=== PATIENT | male | born 1985 | race Two or more races ===

== ENCOUNTER 2016-09-14 10:34 | Inpatient (IN) | payer OTHER ==
[~2016-09-14] VITALS: Ht 172.7 cm; Wt 113.7 kg
[2016-09-14] VITALS (24 sets, daily range): BP systolic 128–178; BP diastolic 76–101; PULSE 64–107; RESP 10–20; Ht 172.7 cm; Wt 113.7 kg
[~2016-09-14 10:34] MED LIST: CEFAZOLIN 1 GM INJ ONE
[2016-09-14] MEDS ORDERED: Metronidazole 500 MG in NS 100 ML IVPB SCH (11:00)
[2016-09-14] MEDS ORDERED: SOD CHLORIDE 0.9% 1,000 ML IV SCH (11:00)
[2016-09-14] MEDS ORDERED: CIPROFLOXACIN 400 MG in D5W 200 ML IVPB SCH (11:00)
[2016-09-14] MEDS ORDERED: DEXL60CA2 PO (12:22)
[2016-09-14] MEDS ORDERED: BUPIVACAINE 0.25% (MPF) 30 ML INJ ONE (14:14)
[2016-09-14] MEDS ORDERED: PROPOFOL 20 ML ONE (14:28)
[2016-09-14] MEDS ORDERED: MIDAZOLAM 1 MG/ML 2 ML INJ ONE (14:28)
[2016-09-14] MEDS ORDERED: METOCLOPRAMIDE 10 MG INJ ONE (14:28)
[2016-09-14] MEDS ORDERED: GLYCOPYRROLATE 0.4 MG INJ ONE (14:40)
[2016-09-14] MEDS ORDERED: ROCURONIUM 50 MG INJ ONE ×3 (14:40→16:21)
[2016-09-14] MEDS ORDERED: NEOSTIGMINE 3 MG/3 ML SYRINGE ONE (14:40)
[2016-09-14] MEDS ORDERED: ROPIVACAINE 0.5 % 30 ML VIAL ONE (14:40)
[2016-09-14] MEDS ORDERED: HYDROmorphONE 2 MG/ML SYG ONE (14:48)
[2016-09-14] MEDS ORDERED: POLYMYXIN/BACITRACIN 1L IRRIG ONE (17:05)
[2016-09-14] MEDS: LACTATED RINGER'S 1,000 ML IV SCH (17:53)
[2016-09-14] MEDS ORDERED: HYDROCODONE/APAP (5/325) TAB PO PRN (18:00)
[2016-09-14] MEDS ORDERED: MEPERIDINE 25 MG INJ ONE (18:06)
[2016-09-14] MEDS ORDERED: HYDROmorphONE (0.2 MG/ML) 10ML SYG IV PRN ×3 (18:30)
[2016-09-14] MEDS ORDERED: METOCLOPRAMIDE 10 MG INJ IV PRN (18:30)
[2016-09-14] MEDS ORDERED: LABETALOL HCL 20MG INJ IV PRN (18:30)
[2016-09-14] MEDS ORDERED: DIPHENHYDRAMINE 50 MG INJ IV PRN (18:30)
[2016-09-14] MEDS ORDERED: MEPERIDINE 25 MG INJ IV PRN (18:30)
[2016-09-14] MEDS ORDERED: ONDANSETRON 4 MG INJ IV PRN (18:30)
[2016-09-14 18:56] LABS: ADD SCAN DIFF NO
[2016-09-14 18:57] LABS: BASOPHIL # 0.1 10^3/ul (0.0-0.1); BASOPHILS % 0.3 % (0.0-2.0); EOSINOPHILS # 0.2 10^3/ul (0.0-0.5); EOSINOPHILS % 0.9 % (0.0-7.0); HEMATOCRIT 47.4 % (42.0-52.0); MEAN CORPUSCULAR HEMOGLOBIN 29.2 pg (29.0-33.0); MEAN CORPUSCULAR HGB CONC 33.8 g/dl (32.0-37.0); MEAN CORPUSCULAR VOLUME 86.5 fl (82.0-101.0); MEAN PLATELET VOLUME 10.4 fl (7.4-10.4); MONOCYTES % 5.2 % (0.0-11.0); NEUTROPHIL # 14.2 10^3/ul (1.6-7.5); NEUTROPHILS % 76.8 % (39.0-77.0); PLATELET COUNT 301 10^3/UL (140-415); RED BLOOD COUNT 5.48 10^6/ul (4.70-6.10); RED CELL DISTRIBUTION WIDTH 11.8 % (11.5-14.5); WHITE BLOOD COUNT 18.4 10^3/ul (4.8-10.8)
[2016-09-14] MEDS: hydrALAzine 20 MG INJ IV PRN ×2 (19:04→19:25)
[2016-09-14 19:16] LABS: BILIRUBIN,INDIRECT 0.2 mg/dl (0-1.1); BILIRUBIN,TOTAL 0.2 mg/dl (0.2-1.3)
[2016-09-14 19:17] LABS: ALBUMIN/GLOBULIN RATIO 1.17; TOTAL PROTEIN 7.4 g/dl (6.1-8.1)
[2016-09-14 19:31] LABS: CALCIUM 8.6 mg/dl (8.4-10.2); CREATININE 0.95 mg/dl (0.61-1.24); POTASSIUM 4.1 mmol/L (3.5-5.1)
[2016-09-14] MEDS: morphine 2 MG INJ IV PRN ×2 (20:23→23:45)
--- NOTE | 2016-09-14 22:27 | OPR ---
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 He has been on high dose PPIs without resolution of his reflux symptoms. Metabolic workup revealed no other abnormalities. The patient requested laparoscopic Darius repair. 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 OPERATION PERFORMED: Laparoscopic Darius fundoplication, laparoscopic hiatal hernia repair with Bj ll 8-layer mesh, intraoperative EGD. SURGEON: Yong Hicks MD SPECIMENS: None. COMPLICATIONS: None. ANESTHESIA: General. DESCRIPTION OF PROCEDURE: The patient was taken to the OR and prepped and draped in usual sterile f ashion. Surgical timeout was performed. IV antibiotics were given. Left upper periumbilical trans verse incision is made with a 15 blade. Using a 12 mm optical trocar, optical entry was performed. Pneumoperitoneum was established. Left subcostal midclavicular 12 mm optical port was placed under direct visualization. Right mid clavicular subcostal 5 mm optical port was placed under direct vis ualization. Left upper flank 5 mm optical trocar was placed under direct visualization. Midepigast gary 5 mm incision was made and a snake liver retractor was used to retract the liver. Operation was commenced by first identifying pars flaccida and dividing the pars flaccida marching up to the caud ate lobe. The right serafin was identified and isolated from the right esophagus. There appeared to b e significant inflammation in this area due to the severe Pagan's. The short gastrics were identi fied and divided with laparoscopic Harmonic jonathan up to the left serafin, which was identified. The e sophagus was encircled with a Te drain and mobilized. The posterior fundus, which was mobilize d, was marked with a 2-0 silk suture. Attention was paid to the hiatal hernia, which was small. Th is was closed primarily with interrupted 2-0 Ethibond using laparoscopic suturing techniques. [place]lay 8-layer ACell mesh was affixed with additional interrupted 2-0 Ethibond to reinforce the hiatal her fabiola repair. The posterior fundus was delivered retroesophageal with the marking suture. Shoeshine maneuver was performed. There was free mobility and no tension. An EGD was performed intraoperativ taty to confirm there was no evidence of any leakage after irrigation was performed and insufflation was performed. The irrigation was suctioned out. The stomach was suctioned out. A 46-Estonian bougi e was placed into the stomach and esophagus without any issue with good mobility. The fundoplicatio n was then completed with interrupted 3-0 Prolene affixing the stomach fundoplication to the esophag us; 1 cm above and 1 cm below the stomach fundoplication was completed with interrupted 2-0 silk. T here was good hemostasis. Ports were removed under direct visualization. Skin was closed using ski n kendra. Local anesthesia was injected. Dry dressings were applied. Dictated By: YONG HICKS MD SB/SHONDA Conf#: [id number] DID#: [id number] CC: PREMA VILLEGAS MD;*EndCC*
--- NOTE | 2016-09-14 23:40 | HP ---
DATE OF ADMISSION: 09/14/2016 CHIEF COMPLAINT AND HISTORY OF PRESENT ILLNESS: The patient is a 30-year-old gentleman with history of severe GERD and hiatal hernia resistant to proton pump inhibitor. The patient was seen by Dr. Sudha carrasco as an outpatient from GI standpoint and was referred to ____ for further evaluation. Th e patient was subsequently seen by Dr. Hicks and underwent laparoscopic Darius fundoplication. The pa tient has significant postoperative pain and is being admitted for further evaluation and management . The patient denied any chest pain or shortness of breath. The patient denied any history of rece nt fever or chills. No history of vomiting. No history of urinary or bowel complaint. Rest of the review of systems was unremarkable. PAST MEDICAL HISTORY: The patient has history of asthma as a child but is currently not on any jama tment and also history of right ACL tear, status post surgery. SOCIAL HISTORY: No smoking, no alcohol. FAMILY HISTORY: Noncontributory. PHYSICAL EXAMINATION: GENERAL: The patient is conscious, awake, alert. VITAL SIGNS: Temperature 99.2, blood pressure 159/80, pulse 77, respirations 16. O2 saturation 97% on 2 L nasal cannula. HENT: Conjunctivae and lids normal. Oropharynx clear. NECK: No mass. CHEST: Fairly clear. CARDIOVASCULAR: S1, S2 normal. No murmur. ABDOMEN: The patient is status post surgery. EXTREMITIES: No leg edema. Pedal pulses palpable. SKIN: Without acute rash. NEUROLOGIC: The patient is awake, alert with no gross focal deficit. Detailed examination was defe rred due to recent surgery. LABORATORIES: Prior to admission, WBC 8.3, hemoglobin 16.3, platelets 318. Sodium ____, potassium 4.9, BUN 13, creatinine 0.8, glucose 111. Coagulation profile normal. IMPRESSION: Severe gastroesophageal reflux disease recalcitrant to proton pump inhibitor, status po st laparoscopic fundoplication and laparoscopic hiatal hernia repair. PLAN: The patient admitted on medical floor. The patient will be started on IV fluid, IV Reglan, I V morphine, IV Zofran. Will use SCD for DVT prophylaxis. The patient will be kept n.p.o. for now. Will do followup labs in the morning. The patient received preop Cipro and Flagyl. The patient rendon s history of ALLERGY TO PENICILLIN. Will continue to follow him from medical standpoint. Dictated By: PREMA BARON/SHONDA Conf#: [id number] DID#: [id number]
[2016-09-15] MEDS: LACTATED RINGER'S 1,000 ML IV SCH ×4 (02:29→23:53)
[2016-09-15] MEDS: morphine 2 MG INJ IV PRN ×2 (02:29→06:12)
[2016-09-15 04:30] VITALS: BP 132/80; PULSE 91; RESP 18
[2016-09-15 04:54] LABS: ADD SCAN DIFF NO
[2016-09-15 05:10] LABS: BASOPHILS % 0.1 % (0.0-2.0); EOSINOPHILS % 0.1 % (0.0-7.0); HEMATOCRIT 45.6 % (42.0-52.0); HEMOGLOBIN 15.1 g/dl (14.0-18.0); LYMPHOCYTES # 3.1 10^3/ul (0.8-2.9); LYMPHOCYTES % 23.1 % (15.0-51.0); MEAN CORPUSCULAR HEMOGLOBIN 28.8 pg (29.0-33.0); MEAN CORPUSCULAR HGB CONC 33.1 g/dl (32.0-37.0); MEAN CORPUSCULAR VOLUME 86.9 fl (82.0-101.0); MEAN PLATELET VOLUME 10.5 fl (7.4-10.4); MONOCYTE # 1.2 10^3/ul (0.3-0.9); MONOCYTES % 8.5 % (0.0-11.0); NEUTROPHIL # 9.2 10^3/ul (1.6-7.5); NEUTROPHILS % 67.8 % (39.0-77.0); PLATELET COUNT 315 10^3/UL (140-415); RED BLOOD COUNT 5.25 10^6/ul (4.70-6.10); RED CELL DISTRIBUTION WIDTH 12.2 % (11.5-14.5); WHITE BLOOD COUNT 13.6 10^3/ul (4.8-10.8)
[2016-09-15 05:52] LABS: ALBUMIN 3.6 g/dl (3.3-4.9)
[2016-09-15 05:55] LABS: ALBUMIN/GLOBULIN RATIO 1.16; BILIRUBIN,INDIRECT 0.7 mg/dl (0-1.1); BILIRUBIN,TOTAL 0.7 mg/dl (0.2-1.3); CALCIUM 8.8 mg/dl (8.4-10.2); CREATININE 0.74 mg/dl (0.61-1.24); TOTAL PROTEIN 6.7 g/dl (6.1-8.1)
[2016-09-15 08:07] VITALS: BP 132/83; RESP 16
[2016-09-15] MEDS: morphine 4 MG/ML VIAL IV PRN ×3 (08:30→20:15)
--- NOTE | 2016-09-15 10:01 | PN ---
Date/Time of Note Date/Time of Note DATE: 09/15/16 TIME: 10:00 Assessment/Plan VTE Prophylaxis VTE Prophylaxis Intervention: SCD's Lines/Catheters IV Catheter Type (from Nrsg): Peripheral IV Urinary Cath still in place: No (REMOVED in OR) Assessment/Plan Chief Complaint/Hosp Course s/p lap heidi fundoplication lap hiatal hernia repair with biologic mesh and intraop egd Problems: Assessment/Plan clears today and if ok dc Subjective 24 Hr Interval Summary Free Text/Dictation doing well, had some expected chest pain ekg ordered which was normal Exam/Review of Systems Vital Signs Vitals Vital Signs Date Time Temp Pulse Resp B/P Pulse Ox O2 Delivery O2 Flow Rate FiO2 09/15/16 08:45 Nasal Cannula 2.0 09/15/16 08:07 97.8 98 16 132/83 98 Intake and Output 09/14/16 09/14/16 09/15/16 15:00 23:00 07:00 Intake Total 2000 ml 1200 ml Output Total 530 ml 600 ml Balance 1470 ml 600 ml Exam clean dry intact Results Result Diagram: 09/15/16 0420 09/15/16 0420 Results 24 hrs Laboratory Tests Test 09/14/16 18:50 09/15/16 04:20 Alanine Aminotransferase (ALT/SGPT) 141 H 128 H Albumin 4.0 3.6 Albumin/Globulin Ratio 1.17 1.16 Alkaline Phosphatase 70 50 Anion Gap 17 H 16 Aspartate Amino Transf (AST/SGOT) 99 H 83 H Basophils # 0.1 0.0 Basophils % 0.3 0.1 Blood Urea Nitrogen 12 10 Calcium Level 8.6 8.8 Carbon Dioxide Level 27 27 Chloride Level 103 102 Creatinine 0.95 0.74 Direct Bilirubin 0.00 0.00 Eosinophils # 0.2 0.0 Eosinophils % 0.9 0.1 Globulin 3.40 H 3.10 Glucose Level 104 108 Hematocrit 47.4 45.6 Hemoglobin 16.0 15.1 Indirect Bilirubin 0.2 0.7 Lymphocytes # 3.0 H 3.1 H Lymphocytes % 16.0 23.1 Mean Corpuscular Hemoglobin 29.2 28.8 L Mean Corpuscular Hemoglobin Concent 33.8 33.1 Mean Corpuscular Volume 86.5 86.9 Mean Platelet Volume 10.4 10.5 H Monocytes # 1.0 H 1.2 H Monocytes % 5.2 8.5 Neutrophils # 14.2 H 9.2 H Neutrophils % 76.8 67.8 Nucleated Red Blood Cells # 0.0 0.0 Nucleated Red Blood Cells % 0.0 0.0 Platelet Count 301 315 Potassium Level 4.1 4.0 Red Blood Count 5.48 5.25 Red Cell Distribution Width 11.8 12.2 Sodium Level 143 141 Total Bilirubin 0.2 0.7 Total Protein 7.4 6.7 White Blood Count 18.4 H 13.6 #H Medications Medications Current Medications Morphine Sulfate (morphine) 2 mg Q2H PRN IV PAIN LEVEL 6-10 Last administered on 09/15/16 06:12; Admin Dose 2 MG; Start 09/14/16 at 18:00 Acetaminophen/ Hydrocodone Bitart 1 tab 1 tab Q6H PRN PO PAIN LEVEL 6-10; Start 09/14/16 at 18:00 Lactated Ringer's (Lr) 1,000 ml @ 100 mls/hr Q10H IV Last administered on 02:29; Admin Dose 100 MLS/HR; Start 09/14/16 at 17:53 Influenza Virus Vaccine (Fluzone) 0.5 ml ONCE ONCE IM* ; Start 09/16/16 at 09:00 ; Stop 09/16/16 at 09:01 Morphine Sulfate (morphine) 4 mg Q2H PRN IV SEVERE PAIN LEVEL 7-10 Last administered on 09/15/16 08:30; Admin Dose 4 MG; Start 09/15/16 at 08:30 Zackary GOODMAN Sep 15, 2016 10:01
[2016-09-15] MEDS ORDERED: HYDROCODONE/APAP (5/325) TAB PO PRN (17:30)
--- NOTE | 2016-09-15 18:56 | PN ---
Date/Time of Note Date/Time of Note DATE: 09/15/16 TIME: 18:53 Assessment/Plan VTE Prophylaxis VTE Prophylaxis Intervention: SCD's Lines/Catheters IV Catheter Type (from Nrsg): Peripheral IV Urinary Cath still in place: No (REMOVED in OR) Assessment/Plan Assessment/Plan - Severe gastroesophageal reflux disease recalcitrant to proton pump inhibitor, status post laparoscopic fundoplication and laparoscopic hiatal hernia repair. Continue Caldwell and morphine for pain. - Obesity, weight loss advised. Further recommendations based on clinical course. Plan of care discussed with Dr. Raymundo. Subjective 24 Hr Interval Summary Free Text/Dictation Patient's complaint of significant amount of pain, denies nausea vomiting, encouraged to use incentive spirometer and get out of bed. Exam/Review of Systems Vital Signs Vitals Vital Signs Date Time Temp Pulse Resp B/P Pulse Ox O2 Delivery O2 Flow Rate FiO2 09/15/16 08:45 Nasal Cannula 2.0 09/15/16 08:07 97.8 98 16 132/83 98 Intake and Output 09/14/16 09/14/16 09/15/16 15:00 23:00 07:00 Intake Total 2000 ml 1200 ml Output Total 530 ml 600 ml Balance 1470 ml 600 ml Exam Constitutional: alert, obese Psych: nl mood/affect, no complaints Head: atraumatic, normocephalic Eyes: nl conjunctiva ENMT: nl external ears & nose Neck: non-tender, supple Respiratory: clear to auscultation, normal air movement Cardiovascular: nl pulses, regular rate and rhythm Gastrointestinal: other (Status post laparoscopic surgery), soft Musculoskeletal: nl extremities to inspection Extremities: normal pulses Neurological: DIRECTOR GRAPHICS II-XII intact Results Result Diagram: 09/15/16 0420 09/15/16 0420 Results 24 hrs Laboratory Tests Test 09/15/16 04:20 Alanine Aminotransferase (ALT/SGPT) 128 H Albumin 3.6 Albumin/Globulin Ratio 1.16 Alkaline Phosphatase 50 Anion Gap 16 Aspartate Amino Transf (AST/SGOT) 83 H Basophils # 0.0 Basophils % 0.1 Blood Urea Nitrogen 10 Calcium Level 8.8 Carbon Dioxide Level 27 Chloride Level 102 Creatinine 0.74 Direct Bilirubin 0.00 Eosinophils # 0.0 Eosinophils % 0.1 Globulin 3.10 Glucose Level 108 Hematocrit 45.6 Hemoglobin 15.1 Indirect Bilirubin 0.7 Lymphocytes # 3.1 H Lymphocytes % 23.1 Mean Corpuscular Hemoglobin 28.8 L Mean Corpuscular Hemoglobin Concent 33.1 Mean Corpuscular Volume 86.9 Mean Platelet Volume 10.5 H Monocytes # 1.2 H Monocytes % 8.5 Neutrophils # 9.2 H Neutrophils % 67.8 Nucleated Red Blood Cells # 0.0 Nucleated Red Blood Cells % 0.0 Platelet Count 315 Potassium Level 4.0 Red Blood Count 5.25 Red Cell Distribution Width 12.2 Sodium Level 141 Total Bilirubin 0.7 Total Protein 6.7 White Blood Count 13.6 #H Medications Medications Current Medications Morphine Sulfate (morphine) 2 mg Q2H PRN IV PAIN LEVEL 6-10 Last administered on 09/15/16 06:12; Admin Dose 2 MG; Start 09/14/16 at 18:00 Acetaminophen/ Hydrocodone Bitart 1 tab 1 tab Q6H PRN PO PAIN LEVEL 6-10 Last administered on 09/15/16 16:34; Admin Dose 1 TAB; Start 09/14/16 at 18:00 Lactated Ringer's (Lr) 1,000 ml @ 100 mls/hr Q10H IV Last administered on 02:29; Admin Dose 100 MLS/HR; Start 09/14/16 at 17:53 Influenza Virus Vaccine (Fluzone) 0.5 ml ONCE ONCE IM* ; Start 09/16/16 at 09:00 ; Stop 09/16/16 at 09:01 Morphine Sulfate (morphine) 4 mg Q2H PRN IV SEVERE PAIN LEVEL 7-10 Last administered on 09/15/16 12:30; Admin Dose 4 MG; Start 09/15/16 at 08:30 Acetaminophen/ Hydrocodone Bitart ([place]dwell (5/325)) 2 tab Q6H PRN PO SEVERE PAIN LEVEL 7-10; Start 09/15/16 at 17:30 NELLY PERALTA Sep 15, 2016 18:56
[2016-09-15 19:49] VITALS: BP 137/87; RESP 20
--- NOTE | 2016-09-15 20:28 | RADRPT ---
Vent Rate: 91 bpm RR Interval: 0 msec DC Interval: 160 msec QRS Duration: 88 msec QT Interval: 354 msec QTC Interval: 435 msec P-R-T [place]: 35 - 49 - 37 degrees Normal sinus rhythm Normal ECG Electronically Signed By: Nima Garcia [id number]
[2016-09-16] MEDS: morphine 4 MG/ML VIAL IV PRN ×2 (01:30→06:19)
[2016-09-16] MEDS ORDERED: AL HYDROX/MG HYDROX/SIMETH 30 ML CUP PO PRN (02:00)
[2016-09-16 04:52] LABS: ADD SCAN DIFF NO
[2016-09-16 05:15] LABS: BASOPHILS % 0.2 % (0.0-2.0); EOSINOPHILS # 0.1 10^3/ul (0.0-0.5); EOSINOPHILS % 0.7 % (0.0-7.0); HEMATOCRIT 45.3 % (42.0-52.0); HEMOGLOBIN 14.8 g/dl (14.0-18.0); LYMPHOCYTES % 24.2 % (15.0-51.0); MEAN CORPUSCULAR HEMOGLOBIN 28.5 pg (29.0-33.0); MEAN CORPUSCULAR HGB CONC 32.7 g/dl (32.0-37.0); MEAN CORPUSCULAR VOLUME 87.3 fl (82.0-101.0); MEAN PLATELET VOLUME 10.5 fl (7.4-10.4); MONOCYTE # 1.4 10^3/ul (0.3-0.9); NEUTROPHIL # 7.9 10^3/ul (1.6-7.5); NEUTROPHILS % 63.3 % (39.0-77.0); PLATELET COUNT 284 10^3/UL (140-415); RED BLOOD COUNT 5.19 10^6/ul (4.70-6.10); RED CELL DISTRIBUTION WIDTH 12.1 % (11.5-14.5); WHITE BLOOD COUNT 12.5 10^3/ul (4.8-10.8)
[2016-09-16 05:19] LABS: POTASSIUM 3.9 mmol/L (3.5-5.1)
[2016-09-16 05:21] LABS: CREATININE 0.78 mg/dl (0.61-1.24)
[2016-09-16 07:00] VITALS: BP 136/79; RESP 20
[2016-09-16] MEDS ORDERED: INFLUENZA VIRUS VACCINE 0.5 ML (DISPENSING) IM* ONE (09:00)
[2016-09-16] MEDS: LACTATED RINGER'S 1,000 ML IV SCH (09:22)
[2016-09-16] MEDS ORDERED: HYDR-3498 PO (16:32)
== END 2016-09-16 17:00 | disposition home or self-care (01) | DRG 328 ==
LOC: REC 10:34 → MS1 19:55
PROVIDERS: ADMIT Internal Medicine; ATTEND Surgery
PROC: 0BUR4KZ (ICD-10-PCS; 2016-09-14)
PROC: [UNRECOGNIZED PROCEDURE] (2016-09-14)
PROC: 0DV44ZZ Restriction of Esophagogastric Junction, Percutaneous Endoscopic Approach (ICD-10-PCS; principal; 2016-09-14 13:00)
DX: K21.0 Gastro-esophageal reflux disease with esophagitis (principal); K22.70 Barrett's esophagus without dysplasia; K44.9 Diaphragmatic hernia without obstruction or gangrene; J45.909 Unspecified asthma, uncomplicated
CPT/HCPCS: 80048; 80053; 85025; 90686; 93005; J0360; J0690; J0744; J1170; J2175; J2250; J2270; J2710; J2765; J2795; J7030; J7120; Q4166

== ENCOUNTER 2017-11-15 09:37 | Observation (INO) | END 2017-11-17 16:45 | disposition home or self-care (01) ==

== ENCOUNTER 2017-12-13 15:13 | Observation (INO) | END 2017-12-16 13:41 | disposition home or self-care (01) ==

== ENCOUNTER 2018-09-02 06:00 | Day surgery (SDC) | payer OTHER ==
[2018-09-01 15:03] VITALS: BMI 33.5
[2018-09-02] VITALS (12 sets, daily range): BP systolic 118–161; BP diastolic 75–91; PULSE 66–96; RESP 11–22; Ht 172.7 cm; Wt 107.0 kg
[~2018-09-02] VITALS: Ht 172.7 cm; Wt 107.0 kg
[~2018-09-02 06:00] MED LIST changes: -CEFAZOLIN 1 GM INJ ONE; +DEXL60CA2 PO; +HYDR-3601 PO; +SOD CHLORIDE 0.9% 1,000 ML IV SCH; +[UNRECOGNIZED DRUG - REMARK] XX SCH
[2018-09-02] MEDS ORDERED: DESFLURANE 15 MIN ONE (07:00)
[2018-09-02] MEDS ORDERED: CLINDAMYCIN 600 MG/D5W (PMX) 50 ML IVPB ONE (07:30)
[2018-09-02] MEDS ORDERED: BUPIVACAINE 0.25% (MPF) 30 ML INJ ONE (07:47)
--- NOTE | 2018-09-02 08:02 | PREAC ---
Date/Time of Note Date/Time of Note DATE: 09/02/18 TIME: 08:01 Anesthesia Eval and Record Evaluation Time Pre-Procedure Interview DATE: 09/02/18 TIME: 08:01 Age 32 Sex male NPO: 8 hrs Preoperative diagnosis gallstones Planned procedure lap choly Past Medical History Past Medical History: Includes GI: GERD Surgery & Anesthesia Issues No known issue Meds Anticoagulation: No Beta Gerry within 24 hr: No Reason Beta Gerry not given: Pt. not on B-Gerry Active Scripts Hydrocodone Bit-Acetaminophen (Hydrocodone Bit-APAP) 5-325MG Tablet, 1 TAB PO Q6H PRN for PAIN LEVEL 6-10, #30 TAB Prov:NELLY PERALTA 09/16/16 Reported Medications Dexlansoprazole (Dexilant) 60 Mg Lan., 60 MG PO DAILY, #30 CAP 09/14/16 Current Medications Sodium Chloride 1,000 ml @ 75 mls/hr Q96H15P IV Last administered on 09/02/18at 06:59; Admin Dose 75 MLS/HR; Start 09/02/18 at 06:00; Stop 09/02/18 at 19:19 Clindamycin HCl/ Dextrose 50 ml @ 50 mls/hr ONCE ONCE IVPB ; Start 09/02/18 at 07:30; Stop 09/02/18 at 08:29 Meds reviewed: Yes Allergies Coded Allergies: Penicillins (Verified Allergy, Severe, ANAPHYLACTIC SHOCK, 09/14/16) mayonnaise (Verified Adverse Reaction, Intermediate, stomach pain, 09/01/18) mustard (Verified Adverse Reaction, Intermediate, stomach, 09/01/18) Allergies Reviewed: Yes Labs/Studies Labs Reviewed: Reviewed by anesthesiologist Result Diagram: 09/02/18 0630 09/02/18 0630 Laboratory Tests 09/02/18 06:30 test: N/A Pre-procedure Exam Last vitals Vital Signs Date Temp Pulse Resp B/P (MAP) Pulse Ox O2 O2 Flow FiO2 Time Delivery Rate 09/02/18 97.5 76 18 118/75 96 07:05 (89) Airway: Adequate mouth opening, Adequate thyromental dist Mallampati: Mallampati III Teeth: Normal Lung: Normal Heart: Normal ASA Physical Status ASA physical status: 1 Emergency: None Pre-operative Attestations Prior to commencing anesthesia and surgery, the patient was re-evaluated, there was verification of: *The patient's identity *The results of appropriate recent lab work and preoperative vital signs *The above evaluation not changing prior to induction *Anesthetic plan, risk benefits, alternative and complications discussed with patient/family; questions answered; patient/family understands, accepts and wishes to proceed. ADILIA RIVERA DO Sep 02, 2018 08:02
[2018-09-02] MEDS ORDERED: FENTAnyl 50 MCG/ML VIAL ONE ×2 (08:05→08:24)
[2018-09-02] MEDS ORDERED: PROPOFOL 20 ML ONE (08:05)
[2018-09-02] MEDS ORDERED: LIDOCAINE 1% (MDV) 20 ML INJ ONE (08:05)
[2018-09-02] MEDS ORDERED: ROCURONIUM 50 MG INJ ONE (08:05)
[2018-09-02] MEDS ORDERED: ONDANSETRON 4 MG INJ ONE (08:15)
[2018-09-02] MEDS ORDERED: DEXAMETHASONE 4 MG/ML 5 ML INJ ONE (08:15)
[2018-09-02] MEDS ORDERED: ROPIVACAINE 0.5 % 30 ML VIAL ONE (08:16)
[2018-09-02] MEDS ORDERED: HYDROmorphONE 1 MG/5 ML IV SYRINGE IV PRN ×2 (08:30)
[2018-09-02] MEDS ORDERED: NEOSTIGMINE 3 MG/3 ML SYRINGE ONE ×2 (08:34)
[2018-09-02] MEDS ORDERED: GLYCOPYRROLATE 0.4 MG INJ ONE (08:34)
--- NOTE | 2018-09-02 08:58 | OPR ---
Date/Time of Note Date/Time of Note DATE: 09/02/18 TIME: 08:54 Operative Report Procedure Date: Sep 02, 2018 Preoperative Diagnosis symptomatic gallstones Postoperative Diagnosis same Operation/Procedure Performed laparoscopic cholecystectomy Surgeon see signature line Institutional Asset Manager none Anesthesia Type: general Estimated Blood Loss: 0 - 10 ml's Transfusion none Specimen gallbladder Grafts/Implants none Complications none Pt Condition Post Procedure: stable Indications This is a 32-year-old male with a complicated medical history. He initially presented with a hiatal hernia. He underwent laparoscopic fundoplication with biologic mesh. Subsequently he was noncompliant with his diet and vomited. He disrupted his wrap and he underwent repeat laparoscopic Darius fundoplication with biologic mesh. A few years later he developed symptomatic gallstones and had another episode of vomiting. He has 2 problems with some tender gallstones and a disrupted wrap and hiatal hernia that is recurrent due to his vomiting. He is brought here for initial stage procedure with the laparoscopic cholecystectomy to resolve the gallbladder issue prior to treatment of his hiatal hernia issue. He had ample time for question and answer session in both the office and in the preop area. All questions were answered. Potential complications include but not limited to bleeding infection, bladder injury intra-abdominal organ injury need for additional operations were discussed the patient. Patient expresses understanding and consents to the operation. Procedure Description Patient is taken to the OR and prepped and draped in usual sterile fashion. Surgical time was performed. IV antibiotics given. Infraumbilical incision was made with a 15 blade. Dissection with cautery was carried onto the fascia. The fascia was grasped with [place]'s and divided with curved Roe scissors. 0 Vicryl U stitch was placed into the fascia. Mandujano trochars were introduced. Pneumoperitoneum is established. Midepigastric 12 mm optical trochars were placed under direct visualization. Right upper quadrant upper flank 5 mm optical trochars were placed under direct position. Upon initial inspection there was minimal adhesions in the right upper quadrant from the prior surgery however there is some adhesions to the gallbladder showing chronic cholecystitis. The gallbladder wall was thickened. The gallbladder is held by the fundus and retracted in a lateral cephalad direction. [place] graspers used to dissect out the cystic artery and cystic duct. The critical view of safety was established. The cystic duct is divided to close proximally clipped distal and the cystic duct is divided laparoscopic scissors. Cystic artery was divided 3 clips proximally clipped distal and the division was performed laparoscopic scissors. Gallbladder was taken of the gallbladder bed. Good hemostasis is established in the gallbladder bed however due to its raw surface Surgicel snow was placed laparoscopically. Gallbladder was retrieved using Endo Catch bag. Ports removed under direct position. 0 Vicryl sutures tied down. Skin is closed and skin kendra. Dry dressings were applied. A tap block was performed by the anesthesiologist after I left the OR. Zackary GOODMAN Sep 02, 2018 08:58
[2018-09-02] MEDS ORDERED: HYDROCODONE/APAP (5/325) TAB PO ONE (09:00)
[2018-09-02] MEDS ORDERED: MEPERIDINE 25 MG INJ ONE (09:10)
--- NOTE | 2018-09-02 09:11 | PAC ---
Date/Time of Note Date/Time of Note DATE: 09/02/18 TIME: 09:10 Post-Anesthesia Notes Post-Anesthesia Note Last documented vital signs Vital Signs Date Temp Pulse Resp B/P (MAP) Pulse Ox O2 O2 Flow FiO2 Time Delivery Rate 09/02/18 98 90 18 130/65 100 0910 Activity: WNL Respiratory function: WNL Cardiovascular function: WNL Mental status: Baseline Pain reasonably controlled: Yes Hydration appropriate: Yes Nausea/Vomiting absent: Yes ADILIA RIVERA DO Sep 02, 2018 09:11
[2018-09-02] MEDS ORDERED: MEPERIDINE 25 MG INJ IV PRN (09:30)
== END 2018-09-02 12:17 | disposition home or self-care (01) ==
LOC: SDS 06:00
PROVIDERS: ATTEND Surgery
DX: K80.20 Calculus of gallbladder without cholecystitis without obstruction (principal)
CPT/HCPCS: 47562; 80053; 85025; 85610; 85730; J1100; J1170; J2175; J2405; J2710; J2795; J3010; Z7610; 88304

== ENCOUNTER 2018-09-08 12:10 | Emergency (ER) | payer OTHER ==
[~2018-09-08] VITALS: Ht 167.6 cm; Wt 95.0 kg
[~2018-09-08 12:10] MED LIST changes: -SOD CHLORIDE 0.9% 1,000 ML IV SCH; -[UNRECOGNIZED DRUG - REMARK] XX SCH
[2018-09-08 12:19] VITALS: Ht 167.6 cm; Wt 95.0 kg
[2018-09-08] MEDS ORDERED: ONDANSETRON (ODT) 4 MG TAB ODT STA (14:34)
[2018-09-08] MEDS ORDERED: HYDROCODONE/APAP (5/325) TAB PO ONE (15:00)
[2018-09-08] MEDS ORDERED: ALBU18HF INHALATION (15:44)
--- NOTE | 2018-09-26 12:17 | ERD ---
ER Documentation Chief Complaint Chief Complaint Complains of abdominal pain x 3 days HPI 32-year-old male presents for abdominal pain times 2 days. patient had gallbladder surgery about a week ago. The pain is noted to be 10 out of 10, diffuse, described as sharp. He states he had a presyncopal episode today bec ause of the abdominal pain. He had mild dizziness and shortness of breath at the time also. Does have a past medical history of Darius fundoplication for chronic GERD. He denies any fevers. Patient has [place] at home for pain given by the surgeon, he states that it helps with the pain however does return with a patent medication wears off. Patient also states that he felt well and went back to work. ROS All systems reviewed and are negative except as per history of present illness. Medications Home Meds Active Scripts Albuterol Sulfate* (Ventolin HFA*) 18 Gm Hfa.aer.ad, 2 PUFF INHALATION Q4H PRN for SHORTNESS OF BREATH, #1 INHALER Prov:GRIFFIN CARSON DO 09/08/18 Hydrocodone Bit-Acetaminophen (Hydrocodone Bit-APAP) 5-325MG Tablet, 1 TAB PO Q6H PRN for PAIN LEVEL 6-10, #30 TAB Prov:NELLY PERALTA 09/16/16 Reported Medications Dexlansoprazole (Dexilant) 60 Mg Cap., 60 MG PO DAILY, #30 CAP 09/14/16 Allergies Allergies: Coded Allergies: Penicillins (Verified Allergy, Severe, ANAPHYLACTIC SHOCK, 09/14/16) mayonnaise (Verified Adverse Reaction, Intermediate, stomach pain, 09/01/18) mustard (Verified Adverse Reaction, Intermediate, stomach, 09/01/18) PMhx/Soc History of Surgery: Yes (HERNIA REPAIR, DARIUS FUND. ACL RT KNEE) Anesthesia Reaction: No Hx Neurological Disorder: No Hx Respiratory Disorders: No Hx Cardiac Disorders: No Hx Psychiatric Problems: No Hx Miscellaneous Medical Probl: No Hx Alcohol Use: Yes (OCC) Hx Substance Use: Yes (MJ OCC) Hx Tobacco Use: Yes (OCC) Smoking Status: Current some day smoker Physical Exam Vitals Temperature 98.4, pulse 88, respiration 20, blood pressure 123/70, O2 saturation 99% on room air. Physical Exam Const: No acute distress Resp: Clear to auscultation bilaterally Cardio: Regular rate and rhythm, no murmurs Abd: Soft, non distended. Normal bowel sounds, mild diffuse tenderness to palpation, no McBurney's point tenderness, no Hu sign, no rebound or guarding noted, surgical incision sites clean dry intact Skin: No petechiae or rashes Back: No midline or flank tenderness Ext: No cyanosis, or edema, 5 out of 5 muscle strength bilateral upper and lower extremity Neur: Awake and alert, bilateral upper and lower extremity sensation intact Psych: Normal Mood and Affect Results 24 hrs Laboratory Tests Test 09/08/18 14:50 White Blood Count 15.8 10^3/ul Red Blood Count 5.53 10^6/ul Hemoglobin 15.9 g/dl Hematocrit 47.5 % Mean Corpuscular Volume 85.9 fl Mean Corpuscular Hemoglobin 28.8 pg Mean Corpuscular Hemoglobin Concent 33.5 g/dl Red Cell Distribution Width 11.8 % Platelet Count 340 10^3/UL Mean Platelet Volume 9.9 fl Immature Granulocytes % 0.400 % Neutrophils % 69.2 % Lymphocytes % 18.0 % Monocytes % 8.6 % Eosinophils % 3.5 % Basophils % 0.3 % Nucleated Red Blood Cells % 0.0 /100WBC Immature Granulocytes # 0.060 10^3/ul Neutrophils # 10.9 10^3/ul Lymphocytes # 2.9 10^3/ul Monocytes # 1.4 10^3/ul Eosinophils # 0.6 10^3/ul Basophils # 0.1 10^3/ul Nucleated Red Blood Cells # 0.0 10^3/ul Urine Color YELLOW Urine Clarity SLIGHTLY CLOUDY Urine pH 5.0 Urine Specific Vance 1.027 Urine Ketones NEGATIVE mg/dL Urine Nitrite NEGATIVE mg/dL Urine Bilirubin NEGATIVE mg/dL Urine Urobilinogen NEGATIVE mg/dL Urine Leukocyte Esterase NEGATIVE Luna/ul Urine Microscopic RBC 20 /HPF Urine Microscopic WBC 1 /HPF Urine Calcium Oxalate Crystals FEW /HPF Urine Mucus MODERATE /HPF Urine Hemoglobin NEGATIVE mg/dL Urine Glucose NEGATIVE mg/dL Urine Total Protein NEGATIVE mg/dl Sodium Level 142 mmol/L Potassium Level 4.3 mmol/L Chloride Level 101 mmol/L Carbon Dioxide Level 29 mmol/L Anion Gap 12 Blood Urea Nitrogen 12 mg/dl Creatinine 0.76 mg/dl Est Glomerular Filtrat Rate mL/min > 60 mL/min Glucose Level 89 mg/dl Calcium Level 9.7 mg/dl Total Bilirubin 0.2 mg/dl Direct Bilirubin 0.00 mg/dl Indirect Bilirubin 0.2 mg/dl Aspartate Amino Transf (AST/SGOT) 25 IU/L Alanine Aminotransferase (ALT/SGPT) 37 IU/L Alkaline Phosphatase 70 IU/L Total Protein 8.6 g/dl Albumin 4.6 g/dl Globulin 4.00 g/dl Albumin/Globulin Ratio 1.15 Lipase 75 U/L Current Medications Medications Dose Sig/Faizan Start Time Status Last (Trade) Ordered Route PRN Stop Time Admin Dose Reason Admin Ondansetron 4 mg ONCE STAT 09/08/18 DC 09/08/18 HCl (Zofran ODT 14:34 14:53 Odt) 09/08/18 14:36 1 tab ONCE ONCE 09/08/18 DC 09/08/18 Acetaminophen PO 15:00 14:53 / 09/08/18 15:01 Hydrocodone Bitart ([place] (5/325)) Procedures/MDM Medical Decision Making: Differential diagnosis includes but not limited to acute gastritis, acute gastroenteritis, appendicitis, cholecystitis, pancreatitis. Patient appeared well on physical exam. Nontoxic appearing. ED course: Patient was given [place] and Zofran. Symptoms improved with treatment. Labs: CBC showed no anemia, elevated WBC 15 CMP showed no electrolyte abnormalities, there was normal kidney and liver function Lipase was normal UA was negative for infection Imaging: CT abdomen pelvis without contrast showed with some fluid and air in the gallbladder fossa. This can be normal findings status post surgery. There is also a small hiatal hernia noted, no evidence of bowel obstruction. There is a possibility of postop ileus, appendix noted to be normal, there is also some fat stranding that is consistent with postsurgical changes. The patient abdominal pain is probably related to postsurgical changes. He did feel better with [place] given in the ER. Vital signs reviewed and noted to be normal. It is unlikely that the patient has an abdominal abscess given the patient appeared well and vital signs are normal. Patient advised follow-up with his surgeon. Prescription(s): Patient given prescription for supportive medications . Patient requests a refill on his Ventolin which was prescribed. Patient advised to follow up with PCP in 1-2 days. Patient advised to return to ED for new or worsening symptoms. Patient stable on discharge from the ED. Disclaimer: Inadvertent spelling and grammatical errors are likely due to EHR/dictation software use and do not reflect on the overall quality of patient care. Also, please note that the electronic time recorded on this note does not necessarily reflect the actual time of the patient encounter. Departure Diagnosis: Primary Impression: Abdominal pain Condition: Fair Patient Instructions: Abdominal Pain Referrals: [facility] YOU HAVE RECEIVED A MEDICAL SCREENING EXAM AND THE RESULTS INDICATE THAT YOU DO NOT HAVE A CONDITION THAT REQUIRES URGENT TREATMENT IN THE EMERGENCY DEPARTMENT. FURTHER EVALUATION AND TREATMENT OF YOUR CONDITION CAN WAIT UNTIL YOU ARE SEEN IN YOUR DOCTORS OFFICE WITHIN THE NEXT 1-2 DAYS. IT IS YOUR RESPONSIBILITY TO MAKE AN APPOINTMENT FOR FOLOW-UP CARE. IF YOU HAVE A PRIMARY DOCTOR --you should call your primary doctor and schedule an appointment IF YOU DO NOT HAVE A PRIMARY DOCTOR YOU CAN CALL OUR PHYSICIAN REFERRAL HOTLINE AT IF YOU CAN NOT AFFORD TO SEE A PHYSICIAN YOU CAN CHOSE FROM THE FOLLOWING [facility] [address] [facility]. [facility] [address] [facility]. [facility] [address] [facility]. [facility] [address] [facility] [facility] [address] [facility]. [facility]. [address] Additional Instructions: Call your primary care doctor TOMORROW for an appointment during the next 1-2 days.See the doctor sooner or return here if your condition worsens before your appointment time. See Dr. Hicks in office in 1-2 days GRIFFIN CARSON DO Sep 26, 2018 12:17
== END 2018-09-08 16:15 | disposition home or self-care (01) ==
LOC: FTE 12:10
DX: R10.9 Unspecified abdominal pain (principal); F17.210 Nicotine dependence, cigarettes, uncomplicated
CPT/HCPCS: 36415; 74176; 80053; 81001; 83690; 85025; Z7502; Z7610; 81003

== ENCOUNTER 2018-11-14 06:21 | Inpatient (IN) | payer OTHER ==
[2018-11-11 12:27] VITALS: BMI 35.0
[2018-11-14] VITALS (23 sets, daily range): BP systolic 116–189; BP diastolic 66–102; PULSE 56–96; RESP 14–22; Ht 172.7 cm; Wt 111.5 kg
[~2018-11-14] VITALS: Ht 172.7 cm; Wt 111.5 kg
[~2018-11-14 06:21] MED LIST changes: +CLINDAMYCIN 600 MG/D5W (PMX) 50 ML IVPB ONE; -DEXL60CA2 PO; -HYDR-3601 PO; +SOD CHLORIDE 0.9% 1,000 ML IV SCH
[2018-11-14] MEDS ORDERED: BUPIVACAINE 0.25% (MPF) 30 ML INJ ONE (08:15)
--- NOTE | 2018-11-14 09:08 | PREAC ---
Date/Time of Note Date/Time of Note DATE: 11/14/18 TIME: 09:06 Anesthesia Eval and Record Evaluation Time Pre-Procedure Interview DATE: 11/14/18 TIME: 09:06 Age 33 Sex male NPO: 8 hrs Preoperative diagnosis HIATAL HERNIA, DIAPHRAGMATIC HERNIA Planned procedure LAP HIATAL HERNIA, DIAPHRAGMATIC HERNIA REPAIR Past Medical History Past Medical History: Includes Pulm: Asthma GI: Obesity Surgery & Anesthesia Issues No known issue Meds Anticoagulation: No Beta Gerry within 24 hr: No Reason Beta Gerry not given: Pt. not on B-Gerry Discontinued Reported Medications Dexlansoprazole (Dexilant) 60 Mg Lan., 60 MG PO DAILY, #30 CAP 09/14/16 Discontinued Scripts Albuterol Sulfate* (Ventolin HFA*) 18 Gm Hfa.aer.ad, 2 PUFF INHALATION Q4H PRN for SHORTNESS OF BREATH, #1 INHALER Prov:GRIFFIN CARSON DO 09/08/18 Hydrocodone Bit-Acetaminophen (Hydrocodone Bit-APAP) 5-325MG Tablet, 1 TAB PO Q6H PRN for PAIN LEVEL 6-10, #30 TAB Prov:NELLY PERALTA 09/16/16 Current Medications Sodium Chloride 1,000 ml @ 75 mls/hr [id number] IV Last administered on 11/14/18at 07:36; Admin Dose 75 MLS/HR; Start 11/14/18 at 06:00; Stop 11/14/18 at 18:00 Meds reviewed: Yes Allergies Coded Allergies: Penicillins (Verified Allergy, Severe, ANAPHYLACTIC SHOCK, 11/14/18) mayonnaise (Verified Adverse Reaction, Intermediate, stomach pain, 11/14/18) mustard (Verified Adverse Reaction, Intermediate, stomach, 11/14/18) Allergies Reviewed: Yes Labs/Studies Labs Reviewed: Reviewed by anesthesiologist Result Diagram: 11/14/18 0707 11/14/18 07 Laboratory Tests 11/14/18 07:07 test: N/A Pre-procedure Exam Last vitals Vital Signs Date Temp Pulse Resp B/P (MAP) Pulse Ox O2 O2 Flow FiO2 Time Delivery Rate 11/14/18 97.5 75 16 123/75 96 07:26 (91) Airway: Adequate mouth opening, Adequate thyromental dist Mallampati: Mallampati II Teeth: Normal Lung: Normal Heart: Normal ASA Physical Status ASA physical status: 2 Emergency: None Planned Anesthetic General/MAC: ETT Nerve block: TAP (bilateral) Pre-operative Attestations Prior to commencing anesthesia and surgery, the patient was re-evaluated, there was verification of: *The patient's identity *The results of appropriate recent lab work and preoperative vital signs *The above evaluation not changing prior to induction *Anesthetic plan, risk benefits, alternative and complications discussed with patient/family; questions answered; patient/family understands, accepts and wishes to proceed. Erwin Gómez M.D. November 14, 2018 09:08
[2018-11-14] MEDS ORDERED: PROPOFOL 20 ML ONE (09:10)
[2018-11-14] MEDS ORDERED: GLYCOPYRROLATE 0.4 MG INJ ONE (09:10)
[2018-11-14] MEDS ORDERED: CEFAZOLIN 1 GM INJ ONE (09:10)
[2018-11-14] MEDS ORDERED: MIDAZOLAM 1 MG/ML 2 ML INJ ONE (09:10)
[2018-11-14] MEDS ORDERED: NEOSTIGMINE 3 MG/3 ML SYRINGE ONE (09:10)
[2018-11-14] MEDS ORDERED: ROCURONIUM 50 MG INJ ONE ×2 (09:10→10:31)
[2018-11-14] MEDS ORDERED: DEXAMETHASONE 4 MG/ML 5 ML INJ ONE (09:11)
[2018-11-14] MEDS ORDERED: ONDANSETRON 4 MG INJ ONE (09:11)
[2018-11-14] MEDS ORDERED: FENTAnyl 50 MCG/ML VIAL ONE (09:11)
[2018-11-14] MEDS ORDERED: ROPIVACAINE 0.5 % 30 ML VIAL ONE (09:24)
[2018-11-14] MEDS ORDERED: EPHEDrine SULFATE 50 MG/5 ML SYG IV PRN (09:30)
[2018-11-14] MEDS ORDERED: OXYCODONE/ACETAMINOPHEN (5/325) TAB PO PRN ×2 (09:30)
[2018-11-14] MEDS ORDERED: hydrALAzine 20 MG INJ IV PRN (09:30)
[2018-11-14] MEDS ORDERED: LABETALOL HCL 20MG INJ IV PRN (09:30)
[2018-11-14] MEDS ORDERED: TRIMETHOBENZAMIDE 100 MG/ML VIAL IM PRN (09:30)
[2018-11-14] MEDS ORDERED: MIDAZOLAM 1 MG/ML 2 ML INJ IV PRN (09:30)
[2018-11-14] MEDS ORDERED: HYDROmorphONE 1 MG/5 ML IV SYRINGE IV PRN ×3 (09:30)
[2018-11-14] MEDS ORDERED: MEPERIDINE 25 MG INJ IV PRN (09:30)
[2018-11-14] MEDS ORDERED: FENTAnyl 50 MCG/ML VIAL IV PRN ×3 (09:30)
[2018-11-14] MEDS ORDERED: DIPHENHYDRAMINE 50 MG INJ IV PRN (09:30)
[2018-11-14] MEDS ORDERED: ALBUTEROL 0.083% (NEB) 2.5 MG/3 ML AMP HHN PRN (09:30)
[2018-11-14] MEDS ORDERED: IPRATROPIUM (NEB) 0.5 MG/2.5 ML AMP HHN PRN (09:30)
[2018-11-14] MEDS ORDERED: ONDANSETRON 4 MG INJ IV PRN ×2 (09:30→11:30)
[2018-11-14] MEDS ORDERED: SUGAMMADEX SODIUM 200 MG/2 ML VIAL IV ONE (11:20)
[2018-11-14] MEDS ORDERED: OXYCODONE 5 MG/5 ML POSYG PO ONE (11:30)
--- NOTE | 2018-11-14 11:41 | PAC ---
Date/Time of Note Date/Time of Note DATE: 11/14/18 TIME: 11:41 Post-Anesthesia Notes Post-Anesthesia Note Last documented vital signs Vital Signs Date Temp Pulse Resp B/P (MAP) Pulse Ox O2 O2 Flow FiO2 Time Delivery Rate 11/14/18 98.9 11:38 11/14/18 75 16 123/75 96 07:26 (91) Activity: WNL Respiratory function: WNL Cardiovascular function: WNL Mental status: Baseline Pain reasonably controlled: Yes Hydration appropriate: Yes Nausea/Vomiting absent: Yes Erwin Gómez M.D. November 14, 2018 11:41
--- NOTE | 2018-11-14 11:46 | OPR ---
Date/Time of Note Date/Time of Note DATE: 11/14/18 TIME: 11:37 Operative Report Procedure Date: November 14, 2018 Preoperative Diagnosis recurrent hiatal hernia and recalcitrant GERD Postoperative Diagnosis same Operation/Procedure Performed 1. laparoscopic recurrent hiatal hernia repair with fundoplication 2. implantation of biologic mesh 3. laparoscopic lysis of adhesions 4. laparoscopic removal of biologic mesh 5. laparoscopic removal of foreign body Surgeon see signature line Skin Piler none Anesthesia Type: general Estimated Blood Loss: 10 - 50 ml's Transfusion none Specimen foreign body Grafts/Implants none Complications none Pt Condition Post Procedure: stable Indications This is a 33-year-old male with a complicated history. He initially presented to the office because of recalcitrant GERD and reflux disease that was resistant to PPI therapy. He underwent a successful laparoscopic hiatal hernia repair with fundoplication initially. Postoperative course was routine. He returned with a recurrence due to his lack of caution in the initial stages of his diet and disrupted his fundoplication. He underwent a second operation with the redo fundoplication. Postoperative course was appropriate and recovered nicely. Approximately a year later he had an episode of acute cholecystitis and nausea and vomiting. He had appropriate treatment of his gallbladder and underwent a laparoscopic cholecystectomy. He then had imaging which showed that his hiatal hernia repair and fundoplication was disrupted and he had painful reflux disease. He underwent appropriate imaging and he presents today for a third fundoplication. He is told that the risks are increased because of his third operation with increased scar tissue. Additionally the success of this operation may be influenced by his prior multiple surgeries. Patient expressed understanding and still wanted to proceed with the surgery as his recurrent GERD symptoms were unbearable for the patient. Increased risk of bleeding infection intra-abdominal organ injury were discussed the patient. Patient expressed understanding consents to the operation. Procedure Description Patient is taken to the OR and prepped and draped in usual sterile fashion. Surgical time was performed. IV antibiotics given. Left upper periumbilical transverse incision that was used for prior surgery was used. Through this incision a 12 mm optical trocar was placed under direct visualization without any issue. Insufflation is performed and pneumoperitoneum was established. Midepigastric 5 mm optical trochars placed in direct position. This was then removed and a Chelsea liver retractor was placed under direct visualization. This is secured with a self retracting arm. Right subcostal 5 mm port is placed under direct physician. Left subcostal 12 mm optical trochars placed under direct visualization. Left flank 5 mm optical trochars placed under direct visualization. Upon initial inspection there is a significant amount of scar tissue. Extensive laparoscopic lysis of adhesions was performed. This was performed along the edge of the liver. This was taken down carefully. Further inspection showed a disruption of the fundoplication. This also showed a foreign body. This was then laparoscopically lysed and removed through the port and sent for specimen. The area of where the short gastrics were had adhesions. This was taken down with laparoscopic harmonic jonathan all the way to the hiatus. This allowed mobilization of the fundus completely. In direct communication with the anesthesiologist 56 bougie was placed under direct visualization. This was seen appropriately and was seen going through the hiatus and down into the stomach. This was fixated under direct medication with the anesthesiologist. A fundoplication was then performed with reapproximation of the anterior fundoplication by reapproximating the fundus to the lesser curve under direct physician. This was done by using laparoscopic suturing techniques with 2-0 PDS and this area was then additionally reinforced with interrupted 2-0 silk. Good hemostasis established. This repair was then reinforced with 6 layer ACell biologic mesh. This mesh was secured in place with interrupted 2-0 silk. Good hemostasis was established in the surgical bed. The bougie was then removed with direct medication to the anesthesiologist without any issue. There is no resistance. All ports were removed under direct visualization. Skin was closed and skin kendra. A tap block was provided the anesthesiologist at the beginning of the case. Dry dressings were applied. Zackary GOODMAN November 14, 2018 11:46
[2018-11-14] MEDS ORDERED: CLINDAMYCIN 600 MG/D5W (PMX) 50 ML IVPB SCH (12:00)
[2018-11-14] MEDS ORDERED: OXYCODONE 5 MG/5 ML POSYG PO PRN (12:00)
[2018-11-14] MEDS ORDERED: oxyCODONE 5 MG TAB PO SCH (12:30)
[2018-11-14] MEDS ORDERED: oxyCODONE 5 MG TAB PO PRN (13:00)
[2018-11-14] MEDS: SOD CHLORIDE 0.9% 1,000 ML IV SCH ×2 (13:10→21:59)
[2018-11-14] MEDS: morphine 2 MG INJ IV PRN ×4 (14:17→21:58)
[2018-11-14] MEDS: CLINDAMYCIN 600 MG/D5W (PMX) 50 ML IVPB SCH (18:14)
[2018-11-15] VITALS: BP 125/76; PULSE 84; RESP 18
[2018-11-15] MEDS: CLINDAMYCIN 600 MG/D5W (PMX) 50 ML IVPB SCH ×5 (00:20→23:15)
[2018-11-15] MEDS: HYDROmorphONE 0.5 MG/0.5 ML SYG IV PRN ×8 (00:20→23:15)
[2018-11-15 04:04] VITALS: BP 124/66; PULSE 80; RESP 18
[2018-11-15] MEDS: PANTOPRAZOLE 40 MG INJ IV SCH (06:53)
[2018-11-15] MEDS: SOD CHLORIDE 0.9% 1,000 ML IV SCH ×2 (07:30→16:50)
[2018-11-15 08:15] VITALS: BP 128/74; PULSE 88; RESP 18
[2018-11-15 08:20] VITALS: BP 128/74; PULSE 88; RESP 18
--- NOTE | 2018-11-15 12:16 | QN ---
Documentation Comment SEEN AND EXAMINED SIA OLIVEIRA MD November 15, 2018 12:16
--- NOTE | 2018-11-15 14:12 | CONS ---
DATE OF ADMISSION: 11/14/2018 DATE OF CONSULTATION: REASON FOR ADMISSION: The patient was admitted electively by Dr. Hicks for laparoscopic recurrent hiat al hernia repair with fundoplication, implantation of biological mesh and laparoscopic lysis of adhes ions, laparoscopic removal of foreign body. HISTORY OF PRESENTING ILLNESS: This is a 33-year-old male with history of recurrent GERD and reflux disease that was resistant to PPI therapy. He underwent a successful laparoscopic hiatal hernia repa ir for fundoplication initially in 2017. He went second operation with redo fundoplication. The pat ient had history of acute cholecystitis with nausea and vomiting. He had appropriate treatment of ga llbladder and laparoscopic cholecystectomy. He had imaging which showed that he had hiatal hernia re pair and fundoplication was disrupted. He was admitted electively by Dr. Hicks for laparoscopic recurr ent hiatal hernia repair with fundoplication, inflammation of biological mesh and laparoscopic lysis of adhesions and laparoscopic removal of biological mesh and laparoscopic removal of foreign body. T he patient is postop day 1. Currently, the patient had upper GI series. After that, the patient cindy d that he was having severe epigastric pain. Denies any nausea or vomiting. PAST MEDICAL HISTORY: 1. History of GERD recalcitrant to PPI therapy, status post fundoplication surgery x3. 2. Right ACL repair. 3. History of cholecystectomy. ALLERGIES: 1. PENICILLIN. 2. MAYONNAISE. 3. MUSTARD. PAST SURGICAL HISTORY: ACL repair, cholecystectomy and Darius fundoplication x3. MEDICATIONS TAKING AT HOME: None. SOCIAL HISTORY: Occasionally smokes cigarettes and drinks alcohol. Denies any recreational drug use . Currently lives at home with family. Works as an project landscape architect. FAMILY HISTORY: Noncontributory. REVIEW OF SYSTEMS: The patient has some epigastric pain. Denies any nausea or vomiting. Had some h eadache in the morning. Denies any chest pain, any shortness of breath, any lower extremity edema. Denies any urinary symptoms. Denies any neurological symptoms. PHYSICAL EXAMINATION: VITAL SIGNS: Currently, blood pressure 128/74, afebrile, heart rate 88, respirations 18, saturating 94% on room air. GENERAL: The patient is awake, alert, oriented, does not appear to in any acute distress. HEENT: Pupils are equal, round and reactive to light. NECK: Supple. No JVD. HEART: rate and rhythm. LUNGS: Clear to auscultation bilaterally. ABDOMEN: Some epigastric tenderness present. Positive bowel sounds. No peritoneal signs. EXTREMITIES: No clubbing, cyanosis or edema. LABORATORY DATA: BMP within normal limits. White count of 11.4, hemoglobin 15.0, platelet count 328 . INR was 0.90. ASSESSMENT AND PLAN: This is a 33-year-old presented with: 1. Severe hiatal hernia, status post Darius fundoplication x3. 2. Postop pain. 3. Obesity. 4. History of ACL repair. 5. History of cholecystectomy. PLAN: At this period of time, the patient is admitted to med/surg. The patient is currently on pain control with Dilaudid and oxycodone. The patient is on IV fluids and Zofran. Diet will be managed per surgery. Rest of the treatment will depend on the patient's hospitalization course. Dictated By: SIA HYDE/SHONDA Conf#: [id number] DID#: [id number] CC: MIGEL HICKS MD; PREMA VILLEGAS MD;*EndCC*
[2018-11-15 15:02] VITALS: BP 127/73; PULSE 85
--- NOTE | 2018-11-15 17:28 | PN ---
Date/Time of Note Date/Time of Note DATE: 11/15/18 TIME: 17:27 Assessment/Plan VTE Prophylaxis Risk score (from Nsg)>0 risk: 5 SCD applied (from Nsg): Yes Pharmacological prophylaxis: other Lines/Catheters IV Catheter Type (from Nrsg): Peripheral IV Assessment/Plan Assessment/Plan s/p redo lap heidi with mesh dc home tomorrw Result Diagram: 11/15/18 0453 11/15/18 0453 Results 24hrs Laboratory Tests Test 11/15/18 04:53 White Blood Count 11.4 #H Red Blood Count 5.22 Hemoglobin 15.0 Hematocrit 45.0 Mean Corpuscular Volume 86.2 Mean Corpuscular Hemoglobin 28.7 L Mean Corpuscular Hemoglobin Concent 33.3 Red Cell Distribution Width 12.7 Platelet Count 328 Mean Platelet Volume 10.5 H Immature Granulocytes % 0.400 Neutrophils % 77.0 Lymphocytes % 14.3 L Monocytes % 8.1 Eosinophils % 0.0 Basophils % 0.2 Nucleated Red Blood Cells % 0.0 Immature Granulocytes # 0.050 H Neutrophils # 8.8 H Lymphocytes # 1.6 Monocytes # 0.9 Eosinophils # 0.0 Basophils # 0.0 Nucleated Red Blood Cells # 0.0 Sodium Level 141 Potassium Level 4.1 Chloride Level 104 Carbon Dioxide Level 27 Anion Gap 10 Blood Urea Nitrogen 11 Creatinine 0.62 Est Glomerular Filtrat Rate mL/min > 60 Glucose Level 140 Calcium Level 9.3 Total Bilirubin 0.8 Direct Bilirubin 0.00 Indirect Bilirubin 0.8 Aspartate Amino Transf (AST/SGOT) 24 Alanine Aminotransferase (ALT/SGPT) 39 Alkaline Phosphatase 63 Total Protein 7.4 Albumin 4.0 Globulin 3.40 H Albumin/Globulin Ratio 1.17 Subjective 24 Hr Interval Summary Free Text/Dictation patient doing well no evidence of heartburn tolerating clears but some pain issues Exam/Review of Systems Exam Vitals Vital Signs Date Temp Pulse Resp B/P (MAP) Pulse Ox O2 O2 Flow FiO2 Time Delivery Rate 11/15/18 98.2 85 127/73 97 Nasal 15:02 (91) Cannula 11/15/18 18 08:20 11/15/18 2.0 04:04 Intake and Output 11/14/18 11/14/18 11/15/18 1515:00 23:00 07:00 IntakeIntake Total 1000 ml 1050 ml 750 ml OutputOutput Total 30 ml 1750 ml 1380 ml BalanceBalance 970 ml -700 ml -630 ml Exam c/d/i Results Results 24hrs Laboratory Tests Test 11/15/18 04:53 White Blood Count 11.4 #H Red Blood Count 5.22 Hemoglobin 15.0 Hematocrit 45.0 Mean Corpuscular Volume 86.2 Mean Corpuscular Hemoglobin 28.7 L Mean Corpuscular Hemoglobin Concent 33.3 Red Cell Distribution Width 12.7 Platelet Count 328 Mean Platelet Volume 10.5 H Immature Granulocytes % 0.400 Neutrophils % 77.0 Lymphocytes % 14.3 L Monocytes % 8.1 Eosinophils % 0.0 Basophils % 0.2 Nucleated Red Blood Cells % 0.0 Immature Granulocytes # 0.050 H Neutrophils # 8.8 H Lymphocytes # 1.6 Monocytes # 0.9 Eosinophils # 0.0 Basophils # 0.0 Nucleated Red Blood Cells # 0.0 Sodium Level 141 Potassium Level 4.1 Chloride Level 104 Carbon Dioxide Level 27 Anion Gap 10 Blood Urea Nitrogen 11 Creatinine 0.62 Est Glomerular Filtrat Rate mL/min > 60 Glucose Level 140 Calcium Level 9.3 Total Bilirubin 0.8 Direct Bilirubin 0.00 Indirect Bilirubin 0.8 Aspartate Amino Transf (AST/SGOT) 24 Alanine Aminotransferase (ALT/SGPT) 39 Alkaline Phosphatase 63 Total Protein 7.4 Albumin 4.0 Globulin 3.40 H Albumin/Globulin Ratio 1.17 Medications Medication Current Medications Ondansetron HCl (Zofran Inj) 4 mg Q6H PRN IV NAUSEA AND/OR VOMITING; Start 11/14/18 at 11:30 Pantoprazole (Protonix Iv) 40 mg DAILY@06 IV Last administered on 11/15/18at 06:53; Admin Dose 40 MG; Start 11/15/18 at 06:00 Sodium Chloride 1,000 ml @ 100 mls/hr Q10H IV Last administered on 11/15/18at 16:50; Admin Dose 100 MLS/HR; Start 11/14/18 at 11:30 Oxycodone HCl (Roxicodone) 5 mg Q4H PRN PO PAIN LEVEL 6-10; Start 11/14/18 at 1 3:00 Clindamycin HCl/ Dextrose 50 ml @ 50 mls/hr Q6 IVPB Last administered on 11/15/18at 12:51; Admin Dose 50 MLS/HR; Start 11/14/18 at 18:00 Hydromorphone HCl (Dilaudid) 0.5 mg Q2 PRN IV SEVERE PAIN LEVEL 7-10 Last administered on 11/15/18at 16:50; Admin Dose 0.5 MG; Start 11/14/18 at 23:00 Zackary GOODMAN November 15, 2018 17:28
[2018-11-15 19:57] VITALS: BP 109/69; PULSE 88; RESP 16
[2018-11-16] MEDS: HYDROmorphONE 0.5 MG/0.5 ML SYG IV PRN ×3 (01:31→08:37)
[2018-11-16 01:59] VITALS: BP 103/60; PULSE 80; RESP 18
[2018-11-16] MEDS: CLINDAMYCIN 600 MG/D5W (PMX) 50 ML IVPB SCH ×2 (05:17→12:51)
[2018-11-16] MEDS: SOD CHLORIDE 0.9% 1,000 ML IV SCH ×2 (05:17→13:30)
[2018-11-16] MEDS: PANTOPRAZOLE 40 MG INJ IV SCH (05:18)
[2018-11-16 08:28] VITALS: BP 109/56; PULSE 67; RESP 18
[2018-11-16 14:00] VITALS: BP 112/58; PULSE 68; RESP 18
--- NOTE | 2018-11-16 14:27 | PN ---
DATE: 11/16/2018 Postop day #2 status post redo Darius fundoplication. SUBJECTIVE: Has been tolerating clear liquid diet. No aspiration, no nausea, no vomiting, no fever. OBJECTIVE: GENERAL: Awake, alert, oriented. VITAL SIGNS: Temperature maximum 98.2, heart rate 67, respiration 18, blood pressure 109/66, saturat ion 91% on room air. HEART: Regular. LUNGS: Clear. ABDOMEN: Soft. Bowel sounds are present. LABORATORY DATA: No labs today lab. The lab yesterday was normal limits. ASSESSMENT AND PLAN: This is a 33-year-old male who had Darius fundoplication in the past and requir es redo which was done 2 days ago. Postop, the patient is doing fine. No fever, no leukocytosis. T he patient is supposed to have clear liquid for [address] Hicks in the office before advanci ng the diet and Dr. Hicks is going to make decision in the office if he is going to advance his diet. The patient can be discharged home from surgical point of view today to be seen by medical service an d prescribe the patient necessary medication. Dictated By: ANNETTE LOVE MD PS/NTS Conf#: [id number] DID#: [id number] CC: PREMA VILLEGAS MD; MIGEL HICKS MD;*End*
--- NOTE | 2018-11-16 15:19 | PDOCDIS ---
Discharge Instructions DIAGNOSIS Discharge Diagnosis heidi fundoplication CONDITION [id number] Patient Condition: [id number] Fair HOME CARE INSTRUCTIONS: [id number] Diet Instructions: Bxaus0d clear liquids only for 2 weeks. ACTIVITY: Mpuzm3Gs Activity Restrictions: Ayxhi7l Slowly Increase Activity Rest between Activity Avoid heavy lifting No Sexual Activity Do not Drive Do not operate Machinery Do not operate Power Tool Avoid Heavy Housework [id number] Bathing Restrictions: Xdlwi2p Shower [id number] Activity Restrictions Tkwit3v Please do sponge bath until Comment: advised by Dr. Hicks you may shower. FOLLOW UP/APPOINTMENTS Follow-up Plan f/u Dr Hicks in1 week SIA OLIVEIRA MD November 16, 2018 15:19
--- NOTE | 2018-11-16 21:27 | DS ---
DATE OF ADMISSION: 11/14/2018 DATE OF DISCHARGE: 11/16/2018 HISTORY OF PRESENT ILLNESS AND HOSPITAL COURSE: This patient is a 33-year-old with history of recurr ent GERD and reflux disease, resistant to PPI therapy, underwent successful laparoscopic hiatal herni a repair, fundoplication in 2017. He went second operation with redo fundoplication, had a history o f acute cholecystitis, nausea, vomiting, appropriate treatment of gallbladder and had laparoscopic ch olecystectomy and imaging which showed that he had hiatal hernia repair and fundoplication was disrup isabelle. He was admitted electively by DrKaye laparoscopic recurrent hiatal hernia repair with fundop lication, laparoscopic lysis of adhesions and laparoscopic removal of bowel mesh and laparoscopic rem oval of foreign body. The patient was doing better. Patient was followed by Dr. Aponte and recommen dations were followed. The patient had upper GI series that showed postsurgical changes of the stoma ch, status post fundoplication. No evidence of leak or obstruction, small residual hiatal hernias pr esent. The patient was started on clear liquid diet, which he was tolerating it without any pain. C urrently, the patient is stable to be discharged home per Dr. Aponte. FINAL DISCHARGE DIAGNOSES: 1. Postoperative day 2 status post redo Darius fundoplication. 2. Obesity. 3. History of GERD reluctant to PPI therapy. 4. History of right ACL repair. 5. History of prior cholecystectomy. DISCHARGE CONDITION: Stable. DISCHARGE DIET: Clear liquid diet will be for 2 weeks and the patient will see Dr. Hicks in the clinic in the next 1 week. DISCHARGE MEDICATIONS: Oxycodone 5 mg p.o. q.6 for p.r.n. pain. Dictated By: SIA HYDE/SHONDA Conf#: [id number] DID#: [id number]
== END 2018-11-16 15:40 | disposition home or self-care (01) | DRG 328 ==
LOC: REC 06:21 → EDSTATUS 08:30 → MS1 12:55
PROVIDERS: ADMIT Surgery; ATTEND Surgery
PROC: 0BUT4JZ Supplement Diaphragm with Synthetic Substitute, Percutaneous Endoscopic Approach (ICD-10-PCS; 2018-11-14)
PROC: 0FN04ZZ Release Liver, Percutaneous Endoscopic Approach (ICD-10-PCS; 2018-11-14)
PROC: 0DV44ZZ Restriction of Esophagogastric Junction, Percutaneous Endoscopic Approach (ICD-10-PCS; principal; 2018-11-14 08:30)
DX: K44.9 Diaphragmatic hernia without obstruction or gangrene (principal); E66.9 Obesity, unspecified; Z68.37 Body mass index [BMI] 37.0-37.9, adult; K21.9 Gastro-esophageal reflux disease without esophagitis; F17.210 Nicotine dependence, cigarettes, uncomplicated; Z88.0 Allergy status to penicillin; Z90.49 Acquired absence of other specified parts of digestive tract; K66.0 Peritoneal adhesions (postprocedural) (postinfection)
CPT/HCPCS: 74240; 80053; 85025; 85610; 85730; 88304; C9113; J0690; J1100; J1170; J2175; J2250; J2270; J2405; J2710; J2795; J3010; J7030; Q4166